=== PATIENT | female | born 1975 | race Caucasian/White ===

== ENCOUNTER 2021-05-16 05:53 | Observation (INO) ==
[2021-05-16] MEDS ORDERED: *HR* OxyCODONE Immed Rel 5 MG TABLET PO ONE ×2 (06:39→06:46)
[2021-05-16] MEDS ORDERED: Lidocaine -MPF 2% 5 ML VIAL ONE (06:41)
[2021-05-16] MEDS ORDERED: Ondansetron 4 MG/2 ML VIAL ONE (06:41)
[2021-05-16] MEDS ORDERED: *HR* FentaNYL (PF) 100 MCG/2 ML VIAL ONE (06:41)
[2021-05-16] MEDS ORDERED: Lidocaine -MPF 4% 5 ML AMPUL ONE (06:41)
[2021-05-16] MEDS ORDERED: *HR* Rocuronium Bromide 50 MG/5 ML VIAL ONE (06:41)
[2021-05-16] MEDS ORDERED: *HR* Midazolam HCl 2 MG/2 ML VIAL ONE (06:42)
[2021-05-16] MEDS ORDERED: *HR* Succinylcholine 200 MG/10 ML VIAL IVP ONE (06:42)
[2021-05-16] MEDS ORDERED: *HR* Propofol 200 MG/20 ML VIAL IVP ONE (06:42)
[2021-05-16] MEDS ORDERED: Famotidine 20 MG/2 ML VIAL IVP ONE (07:00)
[2021-05-16] MEDS ORDERED: tiZANidine 4 MG TABLET PO ONE (07:00)
[2021-05-16] MEDS ORDERED: Gabapentin 300 MG CAPSULE PO ONE (07:00)
[2021-05-16] MEDS ORDERED: Acetaminophen IV 1,000 MG/100 ML BAG IVPB ONE (07:00)
[2021-05-16] MEDS ORDERED: CeFAZolin Syr 2,000MG/20 ML 2,000 MG/20 ML SYRINGE IVPB ONE (07:02)
[2021-05-16] MEDS ORDERED: Vancomycin 1,000 MG VIAL ONE ×2 (07:09→12:29)
[2021-05-16] MEDS ORDERED: Ringers Solution, Lactated 1,000 ML IVC SCH (07:15)
[2021-05-16] MEDS ORDERED: *HR* Remifentanil 2 MG VIAL IVP ONE ×2 (07:36→08:55)
[2021-05-16] MEDS ORDERED: Polymyxin B Sulfate 500,000 UNIT, Sodium Chloride IRRigation 1,000 ML IR ONE (07:45)
[2021-05-16] MEDS ORDERED: *HR* HYDROMORPHONE 2 MG/ML VIAL ONE (09:42)
[2021-05-16] MEDS ORDERED: Sugammadex Sodium 200 MG/2 ML VIAL IV ONE (09:59)
[2021-05-16] MEDS ORDERED: Ondansetron 4 MG/2 ML VIAL IVP PRN ×2 (12:00→14:47)
[2021-05-16] MEDS ORDERED: *HR* HYDROmorphone PF 0.5 MG/0.5 ML SYRINGE IVP PRN (12:00)
[2021-05-16] MEDS ORDERED: NON-FORMULARY MEDICATION 1 EACH EACH (Ascorbic Acid/Vitamin E/Biotin [Hair Skin Nails-Biot PO SCH (14:47)
[2021-05-16] MEDS ORDERED: Ibuprofen 400 MG TABLET PO PRN (14:47)
[2021-05-16] MEDS ORDERED: Psyllium 1 PACKET POWD.PACK PO PRN (14:47)
[2021-05-16] MEDS ORDERED: Naloxone 0.4 MG/ML INJ IVP PRN (14:47)
[2021-05-16] MEDS: Ringers Solution, Lactated 1,000 ML IVC SCH (15:00)
[2021-05-16] MEDS: CeFAZolin 2 GM/100 ML BAG IVPB SCH ×2 (15:43→23:01)
[2021-05-16] MEDS: *HR* Metformin 500 MG TABLET PO SCH (17:08)
[2021-05-16] MEDS: *HR* OxyCODONE Immed Rel 5 MG TABLET PO PRN ×2 (17:08→21:02)
[2021-05-16] MEDS ORDERED: diazePAM 5 MG TABLET PO PRN (21:34)
[2021-05-16] MEDS: diazePAM 10 MG TABLET PO PRN (23:02)
[2021-05-17] MEDS: *HR* OxyCODONE Immed Rel 5 MG TABLET PO PRN ×6 (03:19→23:54)
[2021-05-17] MEDS: Ringers Solution, Lactated 1,000 ML IVC SCH ×2 (08:09→09:37)
[2021-05-17] MEDS: Aspirin Enteric Coated 81 MG Tablet PO SCH (09:18)
[2021-05-17] MEDS: *HR* Metformin 500 MG TABLET PO SCH ×2 (09:18→17:27)
[2021-05-17] MEDS: Multivit/Ca/Min/Fe/FA 1 TAB TABLET PO SCH (09:18)
[2021-05-17] MEDS: Cholecalciferol (D-3) 1,000 UNIT (25MCG) TABLET PO SCH (09:18)
[2021-05-17] MEDS: Loratadine 10 MG TABLET PO SCH (09:18)
[2021-05-17] MEDS: Alogliptin Benzoate [Alogliptin] 25 MG Tablet PO SCH (09:19)
[2021-05-17] MEDS: diazePAM 10 MG TABLET PO PRN ×2 (09:25→19:20)
[2021-05-17] MEDS ORDERED: Ondansetron 4 MG/2 ML VIAL IVP PRN (22:00)
[2021-05-18] MEDS: diazePAM 10 MG TABLET PO PRN (04:09)
[2021-05-18] MEDS: *HR* OxyCODONE Immed Rel 5 MG TABLET PO PRN ×5 (04:09→23:07)
[2021-05-18] MEDS: Cholecalciferol (D-3) 1,000 UNIT (25MCG) TABLET PO SCH (08:31)
[2021-05-18] MEDS: Multivit/Ca/Min/Fe/FA 1 TAB TABLET PO SCH (08:31)
[2021-05-18] MEDS: *HR* Metformin 500 MG TABLET PO SCH ×2 (08:32→17:55)
[2021-05-18] MEDS: Aspirin Enteric Coated 81 MG Tablet PO SCH (08:32)
[2021-05-18] MEDS: Loratadine 10 MG TABLET PO SCH (08:32)
[2021-05-18] MEDS: Alogliptin Benzoate [Alogliptin] 25 MG Tablet PO SCH (11:21)
[2021-05-19] MEDS: *HR* OxyCODONE Immed Rel 5 MG TABLET PO PRN ×2 (04:03→08:16)
[2021-05-19 04:19] VITALS: O2SAT 95
[2021-05-19 06:42] VITALS: BP 118/80; PULSE 85; TEMP 97.6
[2021-05-19] MEDS: Cholecalciferol (D-3) 1,000 UNIT (25MCG) TABLET PO SCH (08:13)
[2021-05-19] MEDS: *HR* Metformin 500 MG TABLET PO SCH (08:14)
[2021-05-19] MEDS: Loratadine 10 MG TABLET PO SCH (08:14)
[2021-05-19] MEDS: Aspirin Enteric Coated 81 MG Tablet PO SCH (08:14)
[2021-05-19] MEDS: Multivit/Ca/Min/Fe/FA 1 TAB TABLET PO SCH (08:14)
[2021-05-19] MEDS: Alogliptin Benzoate [Alogliptin] 25 MG Tablet PO SCH (08:17)
== END 2021-05-19 11:45 | disposition home health service (06) ==
LOC: SDCAOSI 05:53 → 4WAOSI 05:53
PROVIDERS: ADMIT Orthopaedic Surgery Orthopaedic Surgery of the Spine; ATTEND Orthopaedic Surgery Orthopaedic Surgery of the Spine